=== PATIENT | female | born 1955 | race Caucasian/White ===

== ENCOUNTER 2016-04-21 19:05 | Inpatient (IN) | payer BC, OTHER ==
--- NOTE | ~2016-04-21 | XA166 ---
[facility] A Service of [facility] RADIOLOGY TEXT RESULTS PATIENT: ABDULLAHI GALLEGOS LOCATION: C2A 229- : 53 UNIT #: [id number] AGE: [address]: Carlos Abreu MD SEX: F ORDER DR: [id number] [facility] [address] [facility]. [place], [place] [address] [id number] I MR#: [id number] Acc #: [id number] NAME: ABDULLAHI GALLEGOS : 1955 SEX: F STUDY DATE/TIME: 04/24/2016 14:19 UNIT: C2A ROOM: 229 STUDY DESCRIPTION: XA PICC Line Placement WO Port Attending Physician: Carlos Abreu M.D. Ordering Physician: David Xiong M.D. Primary Care Physician: Primary Care Physician No MEDICAL IMAGING REPORT This report is preliminary unless electronic signature is present EXAM PICC line insertion, 04/24/2016 INDICATION 60-year-old female who needs IV antibiotics. PRE-PROCEDURE The procedure was explained to the patient and/or patient fraud representative including risks, benefits, potential complications and potential for alternative forms of treatment. Informed consent was obtained, and prior to initiating the procedure a formal timeout procedure was performed. PROCEDURE Using full standard sterile barrier technique, including caps, gowns, gloves, masks, as well as sterile skin preparation and standard sterile draping, the right arm was prepped and draped in the usual fashion, and real-time sterile ultrasound guidance was used to localize an arm vein and to confirm vessel patency. A hard copy ultrasound image was recorded. After local anesthesia with 1% Xylocaine, the basilic vein was punctured using real-time sterile ultrasound guidance, and an 0.018 guidewire was advanced into the superior vena cava, using fluoroscopic guidance. A 5 Tamazight 35 cm double-lumen PICC was then measured and deployed with the tip positioned in the superior vena cava. The position of the line was documented with a radiographic image. The line was secured in place with an adhesive dressing and an antibiotic patch was applied. Total fluoro time was 0.8 minutes. Reference air kerma 23 mGy. IMPRESSION Successful right arm PICC line placement. [facility] A Service of [facility] RADIOLOGY TEXT RESULTS PATIENT: ABDULLAHI GALLEGOS LOCATION: [facility] 229-01 : 53 UNIT #: [id number] AGE: [address]: Carlos Abreu MD SEX: F ORDER DR: Dictated by... Magnus Meier M.D. THIS IS AN ELECTRONICALLY VERIFIED REPORT Magnus Meier M.D. at 04/28/2016 8:37 AM DORI/sanam TD: 04/25/2016 03:24 JOB #: [id number] MEDICAL IMAGING REPORT COPY
--- NOTE | ~2016-04-21 | MR107 ---
[facility] A Service [facility] RADIOLOGY TEXT RESULTS PATIENT: ABDULLAHI GALLEGOS LOCATION: A 229- : 53 UNIT #: [id number] AGE: [address]: Carlos Abreu MD SEX: F ORDER DR: [id number] [facility] [address] [facility]. [place], [place] [address] [id number] I MR#: [id number] Acc #: [id number] NAME: ABDULLAHI GALLEGOS. : 1955 SEX: F STUDY DATE/TIME: 04/23/2016 21:51 UNIT: C2A ROOM: 229 STUDY DESCRIPTION: MR Prabhjot Peterson WWo Cont Lt Attending Physician: Carlos Abreu M.D. Ordering Physician: Raul Arias M.D. Primary Care Physician: No Primary Care Physician MRI CENTER REPORT This report is preliminary unless electronic signature is present. EXAM MRI left lower leg with and without IV contrast 04/23/2016 HISTORY Order states rule out deep abscess or osteomyelitis. History sheet states posterior lower leg pain since October 2015 getting worse since December 2015. Pain in the lower leg from just above the ankle into the lower third of the calf. History of MRSA, diabetes, history of vein stripping both legs then debridement/grafts of right leg. Wound history not provided. FINDINGS There is subcutaneous varices throughout the lower leg especially distally. In the area marked with markers posterolaterally in the mid lower leg, is skin or superficial subcutaneous thickening with mild enhancement. Correlate for any clinical cellulitis. In the proximal lower leg, is additional skin thickening and T2 signal without enhancement, likely not infectious. There is no evidence of a subcutaneous or deep space fluid collection/abscess. There is no evidence of osteomyelitis. There is an osteochondral abnormality of the medial dominant talus. Correlate for clinical significance. There is no muscle or tendon pathology identified. IMPRESSION 1. No evidence of abscess or osteomyelitis. 2. Posterolateral lower leg skin thickening with mild enhancement. It could reflect mild or early cellulitis. [facility] A Service of [facility] RADIOLOGY TEXT RESULTS PATIENT: ABDULLAHI GALLEGOS LOCATION: [facility] 229-01 : 53 UNIT #: [id number] AGE: [address]: Carlos Abreu MD SEX: F ORDER DR: 3. Skin thickening without enhancement in the posteromedial proximal lower leg is likely not infectious. Findings could be related to venous pathology. 4. Osteochondral lesion medial dome of the talus not well characterized on this exam and possibly of no clinical significance. STAT * RESULT Dictated by... Abigail Yepez M.D. THIS IS AN ELECTRONICALLY VERIFIED REPORT Abigail Yepez M.D. at 04/24/2016 11:21 AM CHYNA/lloyd TD: 04/24/2016 08:59 JOB #: [id number] MRI CENTER REPORT COPY
--- NOTE | ~2016-04-21 | US85 ---
[facility] A Service of [facility] & [facility] RADIOLOGY TEXT RESULTS PATIENT: ABDULLAHI GALLEGOS LOCATION: C2A 229- : 53 UNIT #: [id number] AGE: [address]: Carlos Abreu MD SEX: F ORDER DR: [id number] [facility] [address] [place], [place] [address] [id number] I MR#: [id number] Acc #: [id number] NAME: ABDULLAHI GALLEGOS : 1955 SEX: F STUDY DATE/TIME: 04/21/2016 20:29 UNIT: [facility] ROOM: [facility] STUDY DESCRIPTION: US LE Veins Unilat or Ltd Stdy Attending Physician: Carlos Abreu M.D. Ordering Physician: Nehemiah Martinez D.O. Primary Care Physician: No Primary Care Physician MEDICAL IMAGING REPORT This report is preliminary unless electronic signature is present EXAM Left lower extremities Doppler HISTORY Left lower extremity pain for 3 days. History of ulcers. TECHNIQUE Venous ultrasound examination of the left lower extremity was performed using grayscale, spectral Doppler and color flow Doppler imaging. FINDINGS The examination is negative. There is no evidence of left lower extremity deep venous thrombus from the groin to the lower calf. Visualized greater saphenous vein is also patent. IMPRESSION Negative examination. No evidence of left lower extremity deep venous thrombosis. Dictated by... Gee Meier M.D. THIS IS AN ELECTRONICALLY VERIFIED REPORT Gee Meier M.D. at 04/22/2016 6:33 PM ANGELINE/lloyd TD: 04/22/2016 09:37 JOB #: [id number] MEDICAL IMAGING REPORT COPY
--- NOTE | ~2016-04-21 | HP ---
Unit #: [id number] #: [id number] Patient: ABDULLAHI GALLEGOS [id number] [address] [place], [place] [address] [id number] I MR#: [id number] NAME: ABDULLAHI GALLEGOS ROOM: 28697 Age: 60 Sex: F Admission Date: 04/21/2016 : 1955 Attending Physician: Carlos Abreu M.D. Primary Care Physician: No Primary Care Physician HISTORY AND PHYSICAL CHIEF COMPLAINT Draining ulcer left posterior calf. HISTORY OF PRESENT ILLNESS The patient is a 60-year-old obese white female who is well known to me and Dr. Arias, who has been followed in the wound center by Dr. Arias for wound of the left posterior calf. According to her, over the last couple of days, this wound has expanded and become approximately 4 times larger than what it was. She has chronic venostasis disease and was felt this was a superficial chronic venostasis ulcer. It has had serious drainage and some pain but also with fairly significant swelling of her left lower leg. She was admitted approximately three months ago for similar problems. She has had multiple admissions over the last year or so. PAST MEDICAL HISTORY She has had a history of cardiac catheterization with minimal coronary artery disease, obstructive sleep apnea, lower extremity DVT. She is chronically anticoagulated, had hypertension, diabetes mellitus with peripheral neuropathy, history of MRSA, hyperlipidemia, chronic venostasis dermatitis, and degenerative joint disease, gastroesophageal reflux disease, and diverticulosis. PAST SURGICAL HISTORY She has also had several surgeries including hemorrhoidectomy, removal of fatty tumors, vein stripping both legs, EGD, colonoscopy, D and C, endometrial ablation, right total knee replacement and appendectomy. ALLERGIES Watermelon, cantaloupe, neomycin, bacitracin, Keflex, sulfa, codeine, Zithromax. MEDICATIONS She is on multiple medications including Lipitor, bisoprolol, Celebrex, Claritin, Imodium, Flonase, Lasix, glipizide, metformin, Singulair, Prilosec, Actos, potassium tablets, Toviaz, valsartan, Coumadin, calcium and vitamin C. FAMILY HISTORY Remarkable for the fact there is a history of heart disease, as well as Alzheimer. SOCIAL HISTORY The patient is a retired teacher. She is a nonsmoker and nondrinker. Has Unit #: [id number] #: [id number] Patient: ABDULLAHI GALLEGOS a normal good appetite with no recent weight change. She has been obese for years. REVIEW OF SYSTEMS Twelve system review has been performed, which is nonremarkable except as noted in present illness. PHYSICAL EXAMINATION VITAL SIGNS: The patient is afebrile. Vital signs are normal. GENERAL DESCRIPTION: The patient is a well developed, obese, white female in no acute distress. HEENT: Nonremarkable. NECK: Supple. CHEST: Equal bilateral expansion with bilateral equal breath sounds. LUNGS: Clear bilaterally. HEART: Irregular rhythm without murmurs or gallops. There was no evidence of cardiomegaly clinically. ABDOMEN: Soft, nontender, benign without palpable mass or organomegaly. There was no gross abdominal distention. No guarding or rebound. Active bowel sounds present. No evidence of ascites or hernias. EXTREMITIES: Full range of motion without limitation. There is 3+ edema of the left lower leg with a venostasis ulcer approximately 9 cm in diameter, which is very superficial and only a small amount of serous drainage. She has changes in both legs of chronic venostasis. There is 1+ peripheral edema of the right leg but no evidence of any active ulcers. There is some cellulitis surrounding the superficial wound on the left posterior calf. BACK: There is no CVA tenderness. NEUROLOGIC: Grossly intact. IMPRESSION The patient has cellulitis with a chronic venostasis ulcer to the left posterior calf. PLAN We admit her for local wound care, IV antibiotics and she will be evaluated by Dr. Arias since he is following her in the wound center in the morning. Dictated by Marshall Snow Jr., M.D. JMB/rosio TD: 04/22/2016 08:12 JOB #: [id number] Unit #: [id number] #: [id number] Patient: ABDULLAHI GALLEGOS HISTORY AND PHYSICAL X Marshall Snow MD HISTORY AND PHYSICAL
--- NOTE | ~2016-04-21 | CO ---
Unit #: [id number] #: [id number] Patient: ABDULLAHI GALLEGOS [id number] [address] [place], [place] [address] [id number] I MR#: [id number] NAME: ABDULLAHI GALLEGOS ROOM: 229 Age: 60 Sex: F Admission Date: 04/21/2016 : 1955 Attending Physician: Carlos Abreu M.D. Consultation Date: 04/23/2016 CONSULTATION REPORT REASON FOR CONSULTATION Diabetes mellitus. REASON FOR ADMISSION Draining ulcer of the left posterior calf. HISTORY OF PRESENTING ILLNESS The patient is a 60-year-old obese lady, who was followed by Dr. Arias in the [facility] for a nonhealing wound of the left posterior calf, presented to the emergency room on the 04/21/2016 with a chief complaint of draining ulcer from the left posterior calf. She mention she had a history of MRSA infections in the past. The wound was healing well and all of a sudden it increased in size. She denies any fevers. Denies any chills. She has a history of diabetes mellitus. She follows with her primary care and her last A1c was 6.7. She also has a past medical history of high blood pressure, history of DVTs on chronic anticoagulation, history of atrial fibrillation, morbid obesity, and sleep apnea. She denies having any fever, chills, cough, cold, runny nose. She denies any shortness of breath, abdominal pain, diarrhea, dysuria. In the hospital course, she was also noted to have an extensive rash, for which Dermatology was consulted. Dr. Varma started her on prednisone tapering dosages. PAST MEDICAL HISTORY History of coronary artery disease. She had a cardiac cath which showed minimal coronary artery disease. Other medical problems include obstructive sleep apnea on CPAP machine, history of lower extremity DVTs, history of chronic anticoagulation, hypertension, diabetes, peripheral neuropathy, history of MRSA, hyperlipidemia, chronic venostasis, dermatitis, degenerative joint disease, and GERD. PAST SURGICAL HISTORY Hemorrhoidectomy, removal of lipoma, vein stripping from both legs, EGD, colonoscopy, D and C, endometrial ablation, right total knee replacement, and appendectomy. CURRENT MEDICATIONS Include Coumadin 5 mg p.o. Thursday, Thursday, Thursday, Thursday, and Thursday; Zyrtec 10 mg p.o. daily; prednisone or triamcinolone topical ointment, mupirocin, Diovan 160 mg daily 2 tablets; Actos 30 mg p.o. daily; Lipitor 40 mg daily; Glucotrol 10 mg daily; KCl; ascorbic acid 500 mg daily; bisoprolol and hydrochlorothiazide 10/6.25 mg one tab daily; Lasix 20 mg daily; Flonase 1 spray daily; Protonix 40 mg daily; calcium Unit #: [id number] #: [id number] Patient: REISING,ABDULLAHI A and vitamin D 1 capsule p.o. daily; Claritin 10 mg daily; Singulair 10 mg daily; Coumadin 2.5 mg on Tuesdays and , her last INR today is 2.9; insulin sliding scale low dose; vancomycin 1500 IV q.12; Zofran 4 mg q.6 p.r.n. nausea and vomiting; Dilaudid 0.5 mg q.6 p.r.n.; Bentyl 25 mg q.8 p.r.n.; Detrol 4 mg at bedtime; Lomotil 2.5 mg at bedtime; Celebrex 200 mg p.o. daily. ALLERGIES Watermelon, cantaloupe, neomycin, bacitracin, Keflex, sulfa, codeine, Zithromax. I doubt the allergies to Keflex and Zithromax are true allergies. She mentions for both of them she developed diarrhea and abdominal cramping. SOCIAL HISTORY She denies any smoking, alcohol, or illicit drug use. She is a retired teacher. FAMILY HISTORY Remarkable for heart disease as well as dementia. REVIEW OF SYSTEMS Complete review of systems done negative except for what is mentioned in HPI. PHYSICAL EXAMINATION VITAL SIGNS: Temperature 97.9, pulse rate 64, respiratory rate 18, blood pressure 148/65. GENERAL: The patient is alert and oriented x3, lying in the bed, in no acute distress. HEENT: Normocephalic and atraumatic. No icterus. GALINDO. Extraocular muscles intact. NECK: Supple. No JVD. HEART: S1, S2. Regular rate and rhythm. CHEST: Bilateral equal air entry. Clear to auscultation. ABDOMEN: Soft, nontender. EXTREMITIES: Both the legs have darkened discoloration of the toes. On the left leg is in dressing. Right leg there is a darkened discoloration of brownish shiny skin and pulses are 1+. DIAGNOSTIC STUDIES LABORATORY RESULTS: Glucose 257, BUN 19, creatinine 0.7, sodium 137, potassium 4.5, chloride 104, bicarb 27. Hemoglobin A1c 6.8 from 12/17/2015. WBC 8, hemoglobin 11.7, platelet counts 205. ASSESSMENT AND PLAN 1. Diabetes type 2, poorly controlled. In addition, she also had some prednisone and just hyperglycemia. She is on a low level sliding scale. We will increase it to a medium level sliding scale. Check an A1c. She is on oral agents. We will continue with them and if the A1c is high, we will consider starting her on insulin. 2. Hypertension. Continue with her home medications and titrate. 3. Sleep apnea, on CPAP machine. 4. History of deep vein thrombosis, on anticoagulation with Coumadin. Monitor INR and titrate to target levels between 2 to 3. 5. Nonhealing wound. She is already on vancomycin. We will defer further management to the admitting team. I would like to thank Dr. Arias for giving an opportunity to take part Unit #: [id number] #: [id number] Patient: ELABDULLAHI Harrington in the care of this pleasant patient. We will follow the patient with you. Dictated by... David Xiong M.D. STEVE/emmanuel TD: 04/24/2016 05:40 JOB #: [id number] CONSULTATION REPORT X X CONSULTATION REPORT
--- NOTE | ~2016-04-21 | BMI ---
[facility] Nutrition Therapy DATE: 04/23/16 Patient: ABDULLAHI GALLEGOS Physician: GILSON Address: [facility] MIGUE HERNANDEZ Room/Bed: [address] [place] [address], Zip: [place] [address] Admit Date: 04/21/16 Date of : [birth year] Height: 5 4 Weight: 285 129.27 HIGH BMI NOTE: DX: 60 Y.O. FEMALE ADMITTED FOR WOUND INFECTION ANTHROPOMETRICS: 5'4", WT: 284# (129 KG), BMI: 48.7 DIET: CC INTERVENTION: 1. CC DIET RECOMMENDATIONS: 1. RECOMMEND TO ADD HH TO CURRENT DIET ORDER ABOVE TO PROMOTE GRADUAL WEIGHT LOSS TOWARDS HEALTHY BMI (19.0-25.0) OR +/-10%IBW RD WILL F/U PER PROTOCOL Respectfully, CJ BRADSHAW MS, RD, LD Food and Nutritional Services [facility] cc: client file
--- NOTE | ~2016-04-21 | CO ---
Unit #: [id number] #: [id number] Patient: ABDULLAHI GALLEGOS [id number] [address] [place], [place] [address] [id number] MR#: [id number] NAME: ABDULLAHI GALLEGOS ROOM: 229 Age: 60 Sex: F Admission Date: 04/21/2016 : 1955 Attending Physician: Carlos Abreu M.D. Consultation Date: 04/24/2016 CONSULTATION REPORT HISTORY OF PRESENT ILLNESS This is a 60-year-old female with a history of the left posterior venous stasis ulcers with history of MRSA, history of DVT, atrial fibrillation. She has actually been admitted for the drainage from her left lower extremity wound. On her labs, she was found to have abnormal thyroid function test with a TSH of 0.2. I have been asked to see the patient for further management, not evaluation. She has no previous history of any thyroid problems or taking any thyroid medications. PAST MEDICAL HISTORY Please see HPI. PAST SURGICAL HISTORY Vein stripping, EGD, colonoscopy, endometrial ablation, right total knee replacement, appendectomy, hemorrhoidectomy. CURRENT MEDICATIONS List was reviewed. The patient has been on steroids, tapering doses of prednisone. ALLERGIES To multiple medications include neomycin, bacitracin, Keflex, sulfa, codeine, and Zithromax. SOCIAL HISTORY Declines tobacco or alcohol. FAMILY HISTORY Remarkable for dementia. REVIEW OF SYSTEMS A 10-point review of system was completed. Please see HPI. She has no symptoms suggestive of the hypo or hyperthyroidism at this point. PHYSICAL EXAMINATION GENERAL: She is awake, alert, and oriented to time, place, and person. VITAL SIGNS: Stable, afebrile, blood pressure 152/75. HEENT: EOMI. Pupils are equally reactive to light. NECK: Supple. No thyromegaly noted. CHEST: Good air entry. CVS: Regular rhythm. No murmurs. EXTREMITIES: Does have a dressing on her left lower extremity. NEURO: Nonfocal. Unit #: [id number] #: [id number] Patient: ABDULLAHI GALLEGOS DIAGNOSTIC STUDIES LABORATORY RESULTS: TSH 0.22. ASSESSMENT Abnormal thyroid function test most consistent with euthyroid sick syndrome due to the acute current illness as well as secondary to the use of prednisone. PLAN The patient is clinically asymptomatic for any hyperthyroid symptoms. She has euthyroid sick syndrome. No further treatment is needed. No further workup is needed. Please repeat thyroid function test in next 2 to 3 months. Dictated by... Dottie Gaines/emmanuel TD: 04/25/2016 07:07 JOB #: [id number] CONSULTATION REPORT X Flynn Carballo MD X CONSULTATION REPORT
[2016-04-21 18:58] LABS: BASOPHIL% 0.4 % (0-2.5); EOSINOPHIL# 0.3 X10e3 (0-0.7); EOSINOPHIL% 3.7 % (0.0-7.0); HEMATOCRIT 33.9 % (35.0-45.0); HEMOGLOBIN 11.7 gm/dL (12.0-16.0); LYMPHOCYTE# 1.9 X10e3 (1.0-3.5); LYMPHOCYTE% 23.9 % (17.0-45.0); MEAN CORPUSCULAR HEMOGLOBIN 32.8 PG (28-34); MEAN CORPUSCULAR HGB CONC 34.5 g/dL (30-36); MEAN PLATELET VOLUME 8.5 FL (6.5-11.5); MONOCYTE# 0.9 X10e3 (0-1.0); MONOCYTE% 10.6 % (3.0-12.0); NEUTROPHIL# 4.9 X10e3 (1.5-7.1); NEUTROPHIL% 61.4 % (40-75); PLATELET COUNT 205 X10e3 (140-420); RED BLOOD COUNT 3.57 X10e (3.90-5.30); RED CELL DISTRIBUTION WIDTH 14.9 % (11.0-15.5)
[2016-04-21 19:02] LABS: DIFF IND NO
[~2016-04-21 19:05] MED LIST: ACETAMINOPHEN PO; ACTOS PO; ACTOS30 MG PO; ASTELIN137 MCG INH; ASTEPRO137 MCG/0.; ASTEPRO205.5 MCG/; AUGMENTIN PO; BACTRIM DS TABL1 TA1 PO; BACTROBAN15 GM TOP; BENICAR PO; BENICAR20 MG PO; BETAPACE80 MG PO; BISOPROLOL-HCT1 EAC1 PO; BYSTOLIC PO; BYSTOLIC10 MG PO; CALCIUM 600 + D1 TAB PO; CARAFATE1 G; CELEBREX PO; CERTAGEN PO; CLARITIN10 M3 PO; CLEOCIN HCL300 M1 PO; CLOBETASOL 0.0560 GM TOP; COUMADIN PO; COUMADIN2.5 MG PO; COUMADIN5 MG PO; DICYCLOMINE HCL20 MG PO; ESTER C PO; FARXIGA10 MG PO; FISH OIL 1,0001 CAP; FISH OIL 1,0001 CAP PO; FLEXERIL PO; FLONASE 0.05% N16 G1; FLONASE16 GM; FLUCONAZOLE150 M1 PO; GLIPIZIDE10 MG PO; GLUCOPHAGE XR500 MG; GLUCOTROL PO; GREEN COFFEE B400 MG PO; HCTZ PO; HYDROCODON-ACE1 EAC7 PO; IMMODIUM; IMMODIUM1 MG/5 M1; IMMODIUM1 MG/5 M1 PO; JANUMET XR 1001 EACH PO; JANUVIA PO; JOINT SUPPORT PO; K-DUR20 ME1 PO; K-DUR20 ME2 PO; K-LOR20 MEQ PO; KCL PO; LASIX PO; LASIX20 MG PO; LIPITOR40 MG PO; LOPERAMIDE HCL2 M1 PO; LOPRESSOR; LORTAB 10-5001 EACH PO; LORTAB 5-325 M1 EACH PO; METFORMIN HCL500 M1 PO; METFORMIN HYDRO25 GM PO; METFORMIN PO; MONTELUKAST SOD10 MG PO; MUCINEX DM1 TAB.SR . PO; MYCOLOG II CREA15 GM TOP; NASACORT; NASONEX17 GM; OPTIVAR OPHTHA1 DROP OU; PATANOL5 ML OP; PRILOSEC20 MG PO; PROTONIX PO; SINGULAIR PO; TOVIAZ4 MG PO; TRAMADOL HCL50 M1 PO; TYLENOL325 M1 PO; TYLOX 5/500 CAP1 CAP PO; VICODIN 5/500 T1 TAB PO; VIT C PO; VITAMIN B 6; VITAMIN C PO; WARFARIN SODIU2.5 MG PO; ZYRTEC PO; ZYVOX PO; [UNRECOGNIZED DRUG - OTHER]; [UNRECOGNIZED DRUG - OTHER]; [UNRECOGNIZED DRUG - OTHER] PO
[2016-04-21 19:59] LABS: ALBUMIN SERUM 3.8 g/dL (3.5-5.0); ALKALINE PHOSPHATASE 59 U/L (32-92); ALT (SGPT) 15 U/L (10-40); AST (SGOT) 20 U/L (10-42); BILIRUBIN, DIRECT 0.1 mg/dL (0.0-0.2); BILIRUBIN,INDIRECT 0.6 mg/dL (0.0-0.9); BILIRUBIN,TOTAL 0.7 mg/dL (0.2-2.0); BLOOD UREA NITROGEN 32 mg/dL (9-23); BUN/CREATININE RATIO 35.55; CALCIUM SERUM 8.4 mg/dL (8.4-10.2); CARBON DIOXIDE 24 mmol/L (22-31); CHLORIDE 106 mmol/L (100-111); CREATININE SERUM 0.9 mg/dL (0.6-1.4); GLOM FILT RATE Estimated ABOVE60 mL/min (>60); GLUCOSE FASTING 99 mg/dL (70-110); POTASSIUM 4.7 mmol/L (3.5-5.1); PROTEIN TOTAL SERUM 6.6 g/dL (6.0-8.3); SODIUM 135 mmol/L (135-145)
[2016-04-21 20:09] LABS: URINE SOURCE CLEAN CATCH
[2016-04-21 20:13] LABS: URINE APPEARANCE CLEAR; URINE BILIRUBIN NEG (NEG); URINE BLOOD NEG (NEG); URINE COLOR YELLOW; URINE GLUCOSE NEG (NEG); URINE KETONE TRACE (NEG); URINE LEUKOCYTE ESTERASE 1+ (NEG); URINE NITRATE NEG (NEG); URINE PROTEIN NEG (NEG); URINE SPECIFIC GRAVITY 1.022 (1.003-1.035); URINE UROBILINOGEN 0.2 MG/DL (NEG)
[2016-04-21 20:15] LABS: CULTURE INDICATED? YES; URINE BACTERIA AUWI 1+ (NEGATIVE); URINE SQUAMOUS EPITHELIAL CELL OCC /[HPF]
[2016-04-21 22:04] LABS: INR 2.9; PARTIAL THROMBOPLASTIN TIME 39.3 SECONDS (23.5-31.3)
[2016-04-21 22:05] LABS: PROTHROMBIN TIME (PATIENT) 31.7 SECONDS (9.6-11.5)
[2016-04-22] MEDS ORDERED: K-TAB ER20 MEQ PO (02:23)
[2016-04-22] MEDS ORDERED: DETROL PO (07:11)
[2016-04-22] MEDS ORDERED: CELECOXIB200 MG PO ×2 (07:11→09:41)
[2016-04-22] MEDS ORDERED: COUMADIN2.5 MG PO (07:11)
[2016-04-22] MEDS ORDERED: VITAMIN C500 M1 PO (07:11)
[2016-04-22] MEDS ORDERED: SINGULAIR PO (07:11)
[2016-04-22] MEDS ORDERED: ATORVASTATIN CA40 MG PO (07:11)
[2016-04-22] MEDS ORDERED: LOMOTIL TABLET1 TAB PO ×2 (07:11→09:45)
[2016-04-22] MEDS ORDERED: OMEPRAZOLE40 M1 PO (07:11)
[2016-04-22] MEDS ORDERED: CALCIUM 600 +1 EAC1 PO (07:11)
[2016-04-22] MEDS ORDERED: COUMADIN5 MG PO (07:11)
[2016-04-22] MEDS ORDERED: GLUCOTROL PO (07:11)
[2016-04-22] MEDS ORDERED: ZYRTEC10 M2 PO (07:11)
[2016-04-22] MEDS ORDERED: DIOVAN320 MG PO (07:12)
[2016-04-22] MEDS ORDERED: ACTOS30 MG PO ×2 (07:12→07:37)
[2016-04-22] MEDS ORDERED: GLUCOPHAGE500 MG PO (07:12)
[2016-04-22] MEDS ORDERED: K-DUR20 ME1 PO (07:37)
[2016-04-22] MEDS ORDERED: BISOPROLOL/HCTZ1 TA4 PO (09:40)
[2016-04-22] MEDS ORDERED: LASIX20 MG PO (09:41)
[2016-04-22] MEDS ORDERED: VERAMYST10 GM (09:42)
[2016-04-22] MEDS ORDERED: VITAMIN C500 M7 PO (09:43)
[2016-04-22] MEDS ORDERED: VESICARE PO (09:44)
[2016-04-22] MEDS ORDERED: FLONASE 0.05% N16 GM (09:47)
[2016-04-22] MEDS ORDERED: CLARITIN10 M3 PO (10:02)
[2016-04-23 05:25] LABS: INR 2.2; PROTHROMBIN TIME (PATIENT) 23.8 SECONDS (9.6-11.5)
[2016-04-23 06:04] LABS: BLOOD UREA NITROGEN 19 mg/dL (9-23); BUN/CREATININE RATIO 27.14; CALCIUM SERUM 8.8 mg/dL (8.4-10.2); CARBON DIOXIDE 27 mmol/L (22-31); CHLORIDE 104 mmol/L (100-111); CREATININE SERUM 0.7 mg/dL (0.6-1.4); GLOM FILT RATE Estimated ABOVE60 mL/min (>60); GLUCOSE FASTING 257 mg/dL (70-110); POTASSIUM 4.5 mmol/L (3.5-5.1); SODIUM 137 mmol/L (135-145)
[2016-04-24 07:09] LABS: CHOLESTEROL 126 mg/dL (0-200); HDL CHOLESTEROL 33 mg/dL (35-95); LDL CHOLESTEROL 77 mg/dL (-130); LDL/HDL RATIO 2 RATIO (0-4); TRIGLYCERIDES 82 mg/dL (10-160)
[2016-04-24 07:16] LABS: PROCALCITONIN <0.05 NG/ML
[2016-04-24 11:13] LABS: INR 2.1; PROTHROMBIN TIME (PATIENT) 22.3 SECONDS (9.6-11.5)
[2016-04-25 05:15] LABS: HEMATOCRIT 32.5 % (35.0-45.0); HEMOGLOBIN 11.1 gm/dL (12.0-16.0); MEAN CELL VOLUME 93.8 FL (83-96); MEAN CORPUSCULAR HEMOGLOBIN 32.1 PG (28-34); MEAN CORPUSCULAR HGB CONC 34.3 g/dL (30-36); RED BLOOD COUNT 3.47 X10e (3.90-5.30); RED CELL DISTRIBUTION WIDTH 14.9 % (11.0-15.5); WHITE BLOOD COUNT 9.4 X10e3 (4.0-10.5)
[2016-04-25 06:01] LABS: INR 1.8; PROTHROMBIN TIME (PATIENT) 19.5 SECONDS (9.6-11.5)
[2016-04-25 06:07] LABS: BLOOD UREA NITROGEN 19 mg/dL (9-23); BUN/CREATININE RATIO 31.66; CALCIUM SERUM 8.4 mg/dL (8.4-10.2); CARBON DIOXIDE 27 mmol/L (22-31); CHLORIDE 100 mmol/L (100-111); CREATININE SERUM 0.6 mg/dL (0.6-1.4); GLOM FILT RATE Estimated ABOVE60 mL/min (>60); GLUCOSE FASTING 292 mg/dL (70-110); MAGNESIUM 1.7 mg/dL (1.6-3.0); POTASSIUM 3.9 mmol/L (3.5-5.1); SODIUM 133 mmol/L (135-145)
[2016-04-25] MEDS ORDERED: GLUCOPHAGE500 M1 PO (12:13)
[2016-04-25] MEDS ORDERED: TRIAMCINOLONE AC1 GM EXT (12:17)
[2016-04-25] MEDS ORDERED: MEROPENEM-500 MG/50 IV (12:18)
[2016-04-25] MEDS ORDERED: PREDNISONE10 MG (12:19)
[2016-04-25] MEDS ORDERED: DIFLUCAN PO (12:20)
[2016-10-17] MEDS ORDERED: BACTROBAN15 GM TOP (11:32)
[2016-10-17] MEDS ORDERED: CORTISONE60 GM (11:33)
[2016-10-17] MEDS ORDERED: K-DUR20 ME1 DOB (11:36)
[2016-10-17] MEDS ORDERED: WARFARIN SODIUM6 M1 (11:40)
[2016-10-17] MEDS ORDERED: WARFARIN SODIU2.5 M1 PO (11:41)
[2016-10-17] MEDS ORDERED: SINGULAIR PO (11:41)
[2016-10-17] MEDS ORDERED: VESICARE (11:43)
[2016-10-17] MEDS ORDERED: MYRBETRIQ25 MG PO (11:43)
[2016-10-17] MEDS ORDERED: RESTASIS1 EACH (11:44)
[2016-10-24] MEDS ORDERED: DOXYCYCLINE HY100 M3 PO (06:58)
== END 2016-04-25 19:34 | disposition home health service (06) | DRG 638 ==
LOC: CED 19:05 → CEDOF 22:25 → C2A 04-22 08:22
PROVIDERS: Emergency Medicine; Internal Medicine; Nurse Practitioner; Surgery
PROC: 02HV33Z Insertion of Infusion Device into Superior Vena Cava, Percutaneous Approach (ICD-10-PCS; principal; 2016-04-24)
PROC: B518YZA Fluoroscopy of Superior Vena Cava using Other Contrast, Guidance (ICD-10-PCS; 2016-04-24)
PROC: B548ZZA Ultrasonography of Superior Vena Cava, Guidance (ICD-10-PCS; 2016-04-24)
DX: E11.628 Type 2 diabetes mellitus with other skin complications (principal); L03.116 Cellulitis of left lower limb; L97.229 Non-pressure chronic ulcer of left calf with unspecified severity; E11.42 Type 2 diabetes mellitus with diabetic polyneuropathy; N39.0 Urinary tract infection, site not specified; Z68.42 Body mass index [BMI] 45.0-49.9, adult; I48.91 Unspecified atrial fibrillation; I87.8 Other specified disorders of veins; I83.022 Varicose veins of left lower extremity with ulcer of calf; E07.81 Sick-euthyroid syndrome; Z86.14 Personal history of Methicillin resistant Staphylococcus aureus infection; I10 Essential (primary) hypertension; Z86.718 Personal history of other venous thrombosis and embolism; Z79.84 Long term (current) use of oral hypoglycemic drugs; Z79.01 Long term (current) use of anticoagulants; B96.20 Unspecified Escherichia coli [E. coli] as the cause of diseases classified elsewhere; G47.33 Obstructive sleep apnea (adult) (pediatric); I25.10 Atherosclerotic heart disease of native coronary artery without angina pectoris; Z82.49 Family history of ischemic heart disease and other diseases of the circulatory system; Z88.1 Allergy status to other antibiotic agents; Z88.2 Allergy status to sulfonamides; Z88.8 Allergy status to other drugs, medicaments and biological substances; Z91.018 Allergy to other foods; Z88.5 Allergy status to narcotic agent
CPT/HCPCS: 36415; 73720; 76937; 77001; 80048; 80061; 80076; 81003; 82308; 82947; 83036; 83735; 84443; 85025; 85027; 85610; 85730; 87040; 87070; 87075; 87086; 87088; 87186; 87205; 93971; 99285; A9577; C1751; J1815; J2185; J3370

== ENCOUNTER → 2016-06-17 | Outpatient (CLI) | payer BC, OTHER ==
[~2016-06-17] MED LIST changes: +ATORVASTATIN CA40 MG PO; +BISOPROLOL/HCTZ1 TA4 PO; +CALCIUM 600 +1 EAC1 PO; +CELECOXIB200 MG PO; +CORTISONE60 GM; +DETROL PO; +DIFLUCAN PO; +DIOVAN320 MG PO; +DOXYCYCLINE HY100 M3 PO; +FLONASE 0.05% N16 GM; +GLUCOPHAGE500 M1 PO; +GLUCOPHAGE500 MG PO; +K-DUR20 ME1 DOB; +K-TAB ER20 MEQ PO; +LOMOTIL TABLET1 TAB PO; +MEROPENEM-500 MG/50 IV; +MYRBETRIQ25 MG PO; +OMEPRAZOLE40 M1 PO; +PREDNISONE10 MG; +RESTASIS1 EACH; +TRIAMCINOLONE AC1 GM EXT; +VERAMYST10 GM; +VESICARE; +VESICARE PO; +VITAMIN C500 M1 PO; +VITAMIN C500 M7 PO; +WARFARIN SODIU2.5 M1 PO; +WARFARIN SODIUM6 M1; +ZYRTEC10 M2 PO
--- NOTE | ~2016-06-17 | XA30 ---
[facility] A Service of [facility] & [facility] RADIOLOGY TEXT RESULTS PATIENT: ABDULLAHI GALLEGOS LOCATION: CIVR : 53 UNIT #: [id number] AGE: [address]: Grayson Clark MD SEX: F ORDER DR: [id number] [facility] [address] [facility]. [place], [place] [address] [id number] MR#: [id number] Acc #: [id number] NAME: ABDULLAHI GALLEGOS : 1955 SEX: F STUDY DATE/TIME: 06/17/2016 13:17 UNIT: [facility] ROOM: STUDY DESCRIPTION: XA Arthrocentesis Major Joint Attending Physician: Grayson Clark M.D. Referring Physician: Grayson Clark M.D. Ordering Physician: Grayson Clark M.D. Primary Care Physician: Kyler Jackman M.D. MEDICAL IMAGING REPORT This report is preliminary unless electronic signature is present EXAM Fluoroscopically-guided left hip injection INDICATION Left hip pain and arthritis. PROCEDURE Risks, benefits, and alternatives to the procedure were explained to the patient, and a signed, informed consent was obtained. She was placed supine on the angiographic table and was prepped and draped in usual sterile fashion. Time-out was performed as protocol. Skin and subcutaneous tissues were anesthetized with buffered lidocaine and a 22-gauge spinal needle was advanced into the joint space. Contrast injection confirmed location within the joint space and I instilled a combination of lidocaine, bupivacaine, and Depo-Medrol. Needle was then removed and manual pressure was applied until hemostasis was obtained. The fluoroscopy time 0.3 minutes AK was 28 mGy. IMPRESSION Technically successful fluoroscopic-guided left hip injection as noted above. Fluoroscopy was used during the procedure and permanent images were saved. Dictated by... Maxine Dyer M.D. THIS IS AN ELECTRONICALLY VERIFIED REPORT Maxine Dyer M.D. at 06/18/2016 5:21 PM AFF/aa TD: 06/18/2016 09:43 JOB #: [id number] [facility] A Service of [facility] RADIOLOGY TEXT RESULTS PATIENT: ABDULLAHI GALLEGOS LOCATION: [facility] : 53 UNIT #: [id number] AGE: [address]: Grayson Clark MD SEX: F ORDER DR: MEDICAL IMAGING REPORT Page 1 of 1 COPY
== END | disposition home or self-care (01) ==
LOC: CIVR 12:48
PROC: 3E0U33Z Introduction of Anti-inflammatory into Joints, Percutaneous Approach (ICD-10-PCS; principal; 2016-06-17)
PROC: 3E0U3BZ Introduction of Anesthetic Agent into Joints, Percutaneous Approach (ICD-10-PCS; 2016-06-17)
DX: M16.12 Unilateral primary osteoarthritis, left hip (principal)
CPT/HCPCS: 77002; J1030; Q9966

== ENCOUNTER → 2016-09-23 | Outpatient (CLI) | payer BC, OTHER ==
[~2016-09-23] MED LIST changes: -K-DUR20 ME1 DOB; +LOMOTIL 2.5-0.1 EACH PO
--- NOTE | ~2016-09-23 | XA30 ---
[facility] A Service [facility] RADIOLOGY TEXT RESULTS PATIENT: ABDULLAHI GALLEGOS LOCATION: [facility] : 51 UNIT #: [id number] AGE: [address]: Grayson Clark MD SEX: F ORDER DR: [id number] [facility]. [place], [place] [address] [id number] O MR#: [id number] Acc #: [id number] NAME: ABDULLAHI GALLEGOS : 1955 SEX: F STUDY DATE/TIME: 09/23/2016 12:45 UNIT: [facility] ROOM: STUDY DESCRIPTION: XA Arthrocentesis Major Joint Attending Physician: Grayson Clark M.D. Referring Physician: Grayson Clark M.D. Ordering Physician: Grayson Clark M.D. Primary Care Physician: Kyler Jackman M.D. MEDICAL IMAGING REPORT This report is preliminary unless electronic signature is present EXAM Fluoroscopically guided left hip injection INDICTIONS Left hip pain PROCEDURE: The risks, benefits and alternatives to the procedure were explained to the patient, signed, informed consent was obtained. She was placed supine on the angiographic table, was prepped and draped in the usual sterile fashion. Time-out was performed as per protocol. Skin and subcutaneous tissues were anesthetized with buffered lidocaine and a 22 gauge spinal was advanced into the joint space. Contrast was injected which confirmed location within the joint space and I instilled a combination of lidocaine, bupivacaine and Depo-Medrol. The needle was then removed and manual pressure was applied until hemostasis was obtained. Total fluoroscopy time was 0.5 minutes. Ak was 80 mGy. IMPRESSION Technically successfully fluoroscopically guided left hip injection as noted above. Fluoroscopy was used during the procedure and permanent images were saved. . FINDINGS Dictated by... Maxine Dyer M.D. [facility] A Service [facility] RADIOLOGY TEXT RESULTS PATIENT: ABDULLAHI GALLEGOS LOCATION: [facility] : 51 UNIT #: [id number] AGE: [address]: Grayson Clark MD SEX: F ORDER DR: THIS IS AN ELECTRONICALLY VERIFIED REPORT Maxine Dyer M.D. at 09/24/2016 5:13 PM GUTIERREZ/agustin TD: 09/24/2016 09:28 JOB #: [id number] MEDICAL IMAGING REPORT Page 1 of 1 COPY
== END | disposition home or self-care (01) ==
LOC: CIVR 12:34
DX: M16.12 Unilateral primary osteoarthritis, left hip (principal)
CPT/HCPCS: 77002; J1030; Q9966

== ENCOUNTER → 2016-09-25 | Outpatient (CLI) | payer BC, OTHER ==
--- NOTE | ~2016-09-25 | BD1 ---
[facility] A Service of [facility] RADIOLOGY TEXT RESULTS PATIENT: ABDULLAHI GALLEGOS LOCATION: [facility] : 51 UNIT #: [id number] AGE: [address]: Kyler Jackman MD SEX: F ORDER DR: [id number] [address] [address] [id number] O MR#: [id number] Acc #: [id number] NAME: ABDULLAHI GALLEGOS : 1955 SEX: F STUDY DATE/TIME: 09/25/2016 10:47 UNIT: [facility] ROOM: STUDY DESCRIPTION: BD Dexa Bone Dens 1+ Site Attending Physician: Kyler Jackman M.D. Referring Physician: Kyler Jackman M.D. Ordering Physician: Kyler Jackman M.D. Primary Care Physician: Kyler Jackman M.D. MEDICAL IMAGING REPORT This report is preliminary unless electronic signature is present. EXAM DXA scan 09/25/2016 HISTORY Status post menopause with no hormone replacement therapy. Osteopenia. Rheumatoid arthritis and diabetes. Steroid use. Family history of osteoporosis in mother. FINDINGS Bone mineral density in the lumbar spine from L1-L4 was 1.367 g/cm2 which is 1.6 standard deviations above the mean when compared to the young adult reference population which is within the range of normal. This is 1.8 standard deviations above the mean when compared to the age-matched population. Bone mineral density in the left femoral neck was 0.646 g/cm2 which is 2.8 standard deviations below the mean when compared to the young adult reference population which is characteristic of osteoporosis. This is 2.2 standard deviations below the mean when compared to the age-matched population. Bone mineral density in the right femoral neck was 0.738 g/cm2 which is 2.2 standard deviations below the mean when compared to the young adult reference population which is characteristic of osteopenia. This is 1.5 standard deviations below the mean when compared to the age-matched population. IMPRESSION Bone mineral density in the lumbar spine within the range of normal and within the left hip characteristic of osteoporosis and within the right hip characteristic of osteopenia. Dictated by... Abraham Clark M.D. [facility] A Service of [facility] RADIOLOGY TEXT RESULTS PATIENT: ABDULLAHI GALLEGOS LOCATION: [facility] : 53 UNIT #: [id number] AGE: [address]: Kyler Jackman MD SEX: F ORDER DR: THIS IS AN ELECTRONICALLY VERIFIED REPORT Abraham Clark M.D. at 09/26/2016 7:27 AM KRT/pcl TD: 09/25/2016 15:34 JOB #: [id number] MEDICAL IMAGING REPORT Page 1 of 1
== END | disposition home or self-care (01) ==
LOC: SRAD 10:09
DX: Z13.820 Encounter for screening for osteoporosis (principal); Z78.0 Asymptomatic menopausal state
CPT/HCPCS: 77080

== ENCOUNTER → 2016-10-24 | Day surgery (SDC) | payer BC, OTHER ==
--- NOTE | ~2016-10-24 | OR ---
Unit #: [id number] #: [id number] Patient: ABDULLAHI GALLEGOS [id number] [address] [place], [place] [address] [id number] O MR#: [id number] NAME: ABDULLAHI GALLEGOS ROOM: Date of Procedure: 10/24/2016 Admission Date: 10/24/2016 Surgeon: Julian Christopher M.D. : 1955 Attending Physician: Julian Christopher M.D. Referring Physician: Julian Christopher M.D. Primary Care Physician: Kyler Jackman M.D. OPERATIVE REPORT PREOPERATIVE DIAGNOSES Dyspepsia and dysphagia. PROCEDURES PERFORMED Upper gastrointestinal endoscopy and biopsy. POSTOPERATIVE DIAGNOSES 1. The patient had a distal esophageal ring. This was felt to be nonobstructing. A repeated biopsy of the same area of the ring was done to make it ineffective. 2. Mild diffuse prepyloric antral gastritis. This was in the form of diffuse erythema in the antral area. 3. Rest of examination up to third part of duodenum was normal. RECOMMENDATIONS 1. The patient will continue taking current dose of PPI therapy in the form of omeprazole 40 mg p.o. b.i.d. 2. In case of persistent symptoms, an outpatient video swallow study will be performed. She will be followed up in the office in 6 to 8 weeks' time. SEDATION USED MAC. DESCRIPTION OF PROCEDURE Following detailed explanation of the potential risks and complications of an upper endoscopy, namely perforation, bleeding, and complication related to sedation, the patient was brought to GI lab and laid in the left lateral decubitus position. Lubricated tip of the Olympus video upper endoscope was passed through bite block into the proximal esophagus under direct vision. The entire esophageal mucosa was examined. The patient was noted to have distal esophageal mucosal ring. This was felt to be nonobstructing. The scope was then advanced into the gastric cavity and the latter was insufflated. Mucosa of the fundus, body, and antrum examined. Diffuse prepyloric antral erythema was noted, there being no erosions or ulcers. Pylorus was intubated with visualization of the normal duodenal bulb and second and third part of the duodenum. Upon withdrawal and retroflexion, incisura, cardia, and greater curve examined and no additional findings noted. The scope was withdrawn in the distal esophagus. Multiple biopsies obtained from the same area of the ring of the distal esophagus to make it ineffective. The scope was then withdrawn all the way up to pharynx. No additional findings were noted. The patient tolerated the procedure without any postprocedure complications. Unit #: [id number] #: [id number] Patient: ABDULLAHI GALLEGOS Dictated by... Dottie Vidal/emmanuel TD: 10/24/2016 10:15 JOB #: [id number] OPERATIVE REPORT Page 1 of 1 X Julian Christopher MD X PROCEDURE OPERATIVE NOTE
== END | disposition home or self-care (01) ==
LOC: COPS 09-05 07:00
DX: K22.2 Esophageal obstruction (principal); K29.70 Gastritis, unspecified, without bleeding; I10 Essential (primary) hypertension; I48.91 Unspecified atrial fibrillation; E11.9 Type 2 diabetes mellitus without complications; E66.01 Morbid (severe) obesity due to excess calories; G47.30 Sleep apnea, unspecified; M16.10 Unilateral primary osteoarthritis, unspecified hip; Z68.42 Body mass index [BMI] 45.0-49.9, adult; Z87.01 Personal history of pneumonia (recurrent); Z88.1 Allergy status to other antibiotic agents; Z88.2 Allergy status to sulfonamides; Z88.5 Allergy status to narcotic agent; Z88.8 Allergy status to other drugs, medicaments and biological substances; Z91.013 Allergy to seafood; Z79.84 Long term (current) use of oral hypoglycemic drugs; Z79.899 Other long term (current) drug therapy; Z98.890 Other specified postprocedural states
CPT/HCPCS: 82947; 87077